=== PATIENT | female | born 1965 | race Caucasian/White ===

== ENCOUNTER 2019-05-07 16:58 | Emergency (ER) | payer BC, OTHER ==
[2019-05-07 17:49] VITALS: BP 133/79; PULSE 70; RESP 18; TEMP 98.3
--- NOTE | 2019-05-07 18:54 | CT ---
EXAMINATION TYPE: CT brain avi [facility] DATE OF EXAM: 05/07/2019 COMPARISON: None HISTORY: Fall of horse, head and neck pain. CT DLP: 1127 mGycm Automated exposure control for dose reduction was used. TECHNIQUE: CT scan of the head and cervical spine are performed without contrast. FINDINGS: Ventricles of normal size. There is no mass effect nor midline shift. There is no sign of intracranial hemorrhage. Calvarium is intact. There is some straightening of the cervical spine. There is spurring anteriorly from C3 to C7. Facet joints are intact. Skull base is intact. There is no evidence of a fracture. There is narrowing of the C4-5 C5-6 disc spaces. There is posterior endplate spur formation but proba eliud no significant spinal stenosis. There is posterior central C4-5 disc herniation. IMPRESSION: Negative CT scan of the brain. Multilevel spondylotic changes with slight kyphotic curvature. No fracture.
--- NOTE | 2019-05-07 19:14 | ED ---
Head Injury HPI - General Chief complaint: Head Injury Stated complaint: head injury Time Seen by Provider: 05/07/19 18:04 Source: patient Mode of arrival: ambulatory Limitations: no limitations - History of Present Illness Initial comments: Patient is a 54-year-old female presenting to the emergency Department with complaints of a head injury after falling off a horse yesterday. Patient states she was in a slow trauma with her horse when the horse tripped and they both fell forward and off to the side. Patient states she was wearing a helmet at t he time and did hit the back of her head on the ground. Patient states she was feeling okay yesterday. Patient states she did go to bed relatively early last night which is unusual for her. Patient states this morning she still felt fatigued, she's been nauseous all day, and having a hard time concentrating at work. Patient has no other complaints at this time. Upon arrival to ER vital signs are stable, afebrile. work. Patient did go to urgent care who recommended she come in to the ER for further evaluation. Patient denies any fever, chills, vomiting, diarrhea at this time. - Related Data Allergies/Adverse reactions: Allergies Allergy/AdvReac Type Severity Reaction Status Date / Time No Known Allergies Allergy Verified 05/07/19 17:49 Review of Systems ROS Statement: Those systems with pertinent positive or pertinent negative responses have been documented in the HPI. ROS Other: All systems not noted in ROS Statement are negative. Past Medical History Past Medical History: No Reported History History of Any Multi-Drug Resistant Organisms: None Reported Past Surgical History: No Surgical Hx Reported Past Psychological History: No Psychological Hx Reported Smoking Status: Current some day smoker Past Alcohol Use History: Occasional Past Drug Use History: None Reported General Exam - General Exam Comments Initial Comments: GENERAL: Well-appearing, well-nourished and in no acute distress. HEAD: Atraumatic, normocephalic. EYES: Pupils equal round and reactive to light, extraocular movements intact, sclera anicteric, conjunctiva are normal. ENT: TMs normal, nares patent, oropharynx clear without exudates. Moist mucous membranes. NECK: Normal range of motion, supple without lymphadenopathy or JVD. LUNGS: Breath sounds clear to auscultation bilaterally and equal. No wheezes rales or rhonchi. HEART: Regular rate and rhythm without murmurs, rubs or gallops. ABDOMEN: Soft, nontender, normoactive bowel sounds. No guarding, no rebound. No masses appreciated. : Deferred EXTREMITIES: Normal range of motion, no pitting or edema. No clubbing or cyanosis. NEUROLOGICAL: Cranial nerves II through XII grossly intact. Normal speech, normal gait. PSYCH: Normal mood, normal affect. SKIN: Warm, Dry, normal turgor, no rashes or lesions noted. Limitations: no limitations Course Vital Signs 05/07/19 17:46 Temperature 98.3 F Pulse Rate 70 Respiratory 18 Rate Blood Pressure 133/79 O2 Sat by Pulse 100 Oximetry Medical Decision Making - Medical Decision Making Patient is a 54-year-old female presenting with possible contact concussion-like symptoms after falling off her horse yesterday. Patient was sent by urgent care for further testing. Patient states she was wearing home at yesterday when it happened. Patient states she has been nauseous and having a hard time concentrating today. Patient's exam is unremarkable. Vital signs are stable. CT of the head and c-spine was obtained and shows no acute intracranial bleeding or acute fractures. It is discussed with patient is her symptoms are most li alisha related to a concussion. Patient is stable for discharge at this time. Return parameters were discussed with the patient she verbalized understanding. Case discussed with Dr. Tyler. Disposition Clinical Impression: Concussion without loss of consciousness, Nausea, Neck muscle strain Disposition: HOME SELF-CARE Condition: Stable Instructions (If sedation given, give patient instructions): Concussion (ED) Additional Instructions: Please return to the Emergency Department if symptoms worsen or any other concerns. Is patient prescribed a controlled substance at d/c from ED?: No Referrals: Luis Felipe Frankel DO [Primary Care Provider] - 1-2 days
== END 2019-05-07 19:22 | disposition home or self-care (01) ==
LOC: EC 16:58
DX: S06.0X0A Concussion without loss of consciousness, initial encounter (principal); S16.1XXA Strain of muscle, fascia and tendon at neck level, initial encounter; R11.0 Nausea; F17.200 Nicotine dependence, unspecified, uncomplicated; V80.010A Animal-rider injured by fall from or being thrown from horse in noncollision accident, initial encounter; Y93.52 Activity, horseback riding
CPT/HCPCS: 70450; 72125; 99283

== ENCOUNTER 2019-08-31 08:07 | Day surgery (SDC) | payer OTHER ==
[2019-08-29 11:17] VITALS: BMI 19.7
[~2019-08-31 08:07] MED LIST: LACTATED RINGERS 1,000 ML IV SCH; LIDOCAINE 1% 20 ML VIAL (10MG/ML) FOR IV START INTRADERMA PRN
[2019-08-31 08:32] VITALS: TEMP 98.1
[2019-08-31] MEDS ORDERED: MIDAZOLAM 2 MG/2 ML VIAL ONE (09:08)
[2019-08-31] MEDS ORDERED: PROPOFOL 10 MG/ML 20 ML VIAL IV ONE (09:08)
[2019-08-31] MEDS ORDERED: fentaNYL (PF) 50 MCG/ML 2 ML AMP ONE (09:08)
--- NOTE | 2019-08-31 09:28 | P.PCN ---
Date of Procedure: 08/31/19 Procedure(s) Performed: BRIEF HISTORY: Patient is a 54-year-old pleasant male scheduled for an elective colonoscopy as a part of screening for colorectal neoplasia. PROCEDURE PERFORMED: Colonoscopy with biopsy. PREOPERATIVE DIAGNOSIS: Screening for colon cancer. IV sedation per Anesthesia. PROCEDURE: After informed consent was obtained, the patient, was brought into the endoscopy unit. IV sedation was administered by Anesthesia under continuous monitoring. Digital rectal examination was normal. Initially the Olympus CF-160 flexible video colonoscope was then inserted in the rectum, gradually advanced into the cecum without any difficulty. Careful examination was performed as the scope was gradually being withdrawn. Ileocecal valve and the appendiceal orifice were visualized and appeared normal. Prep was excellent. Mucosa of the cecum appeared normal. In the ascending colon there was a 3-4 mm polyp that was removed by cold biopsy. Rest of the, ascending colon, transverse colon, descending colon, sigmoid colon, and rectum appeared normal. Retroflexion was performed in the rectum and no lesions were seen. The patient tolerated the procedure well. IMPRESSION: 3-4 mm ascending colon polyp status post removal by cold biopsy Rest of the colon appeared normal RECOMMENDATIONS: Findings of this examination were discussed with the patient as well as her family. She was advised to follow with the biopsy results. If the biopsies revealed and adenoma he can have a repeat colonoscopy in 5 years.
[2019-08-31 09:31] VITALS: RESP 16
[2019-08-31 09:40] VITALS: BP 95/60; PULSE 56
== END 2019-08-31 10:24 | disposition home or self-care (01) ==
LOC: ORWHC2ENDO 08:07
PROVIDERS: ATTEND Internal Medicine Gastroenterology
DX: Z12.11 Encounter for screening for malignant neoplasm of colon (principal); K63.5 Polyp of colon; F17.200 Nicotine dependence, unspecified, uncomplicated; Z98.890 Other specified postprocedural states; Z97.2 Presence of dental prosthetic device (complete) (partial)
CPT/HCPCS: 88305; 45380; J2250; J3010; J2704

== ENCOUNTER → 2023-07-01 | Outpatient (CLI) | payer OTHER ==
--- NOTE | 2023-07-01 10:57 | US ---
EXAMINATION TYPE: US abdomen complete DATE OF EXAM: 07/01/2023 COMPARISON: NONE CLINICAL INDICATION: Female, 58 years old with history of R10.11 RIGHT UPPER QUADRANT PAIN; TECHNIQUE: Multiple sonographic images of the abdomen are obtained. FINDINGS: EXAM MEASUREMENTS: Liver Length: 13.1 cm Gallbladder Wall: 0.21 cm CBD: 0.31 cm Spleen: 8.8 x 2.7 cm Right Kidney: 8.2 x 3.1 x 3.2 cm Left Kidney: 11.0 x 5.0 x 4.5 cm BELLSTAFF NOTES: Pancreas: Tail obscured by overlying bowel gas Liver: Somewhat heterogeneous in appearance Gallbladder: Appears wnl Evidence for sonographic Luna's sign: no CBD: wnl Spleen: wnl Right Kidney: wnl Left Kidney: wnl Upper IVC: wnl Abd Aorta: Mild plaque formation The liver is heterogenous. The intrahepatic portion of the IVC and proximal abdominal aorta are withi n normal limits. There is no evidence of cholelithiasis. Common bile duct is unremarkable. The vis ualized portions of the pancreas are homogenous. The spleen is unremarkable. Kidneys are symmetric and free of hydronephrosis. No renal lesions are seen. IMPRESSION: 1. Hepatic steatosis.
== END | disposition home or self-care (01) ==
LOC: RADUSWWP 09:29
PROVIDERS: ATTEND Family Medicine
DX: K76.0 Fatty (change of) liver, not elsewhere classified (principal); R10.11 Right upper quadrant pain
CPT/HCPCS: 76700

== ENCOUNTER 2023-07-07 18:40 | Emergency (ER) | payer OTHER ==
[2023-07-07 18:53] VITALS: TEMP 98
--- NOTE | 2023-07-07 19:16 | ED ---
Abdominal Pain HPI - General Source: patient, RN notes reviewed Mode of arrival: ambulatory Limitations: no limitations - History of Present Illness MD Complaint: abdominal pain Onset/Timin -: week(s) <Mikala Villalobos - Last Filed: 07/07/23 19:14> - General Source: patient, RN notes reviewed, old records reviewed <Luc Bender - Last Filed: 07/07/23 22:43> <Ericka Burgess - Last Filed: 07/11/23 07:57> - General Chief Complaint: Abdominal Pain Stated Complaint: abd pain Time Seen by Provider: 07/07/23 19:14 - History of Present Illness Initial Comments: This is a 58 year old female who presents to the emergency department for abdominal pain. She reports increasing RUQ abdominal pain over the last 5 weeks. She saw her PCP 6 days ago and had an US of her gallbladder revealing no problems related to that. (Mikala Villalobos) Patient is a 58-year-old female who presents emergency Department complaining of acute on chronic right upper quadrant abdominal pain. His been more persistent. Radiates to her back. Has further workup in the past and is due to receive further testing in a few weeks but may not be able to wait until then. He denies chest pain or shortness of breath. Denies fevers. Endorses chronic diarrhea that is nonbloody over this period of time. Endorses intermittent nausea but no emesis. Has no other acute complaints at this time. No history of abdominal surgeries. Still has her gallbladder. Presents for further evaluation. Was told previously she has a fatty liver. Patient originally eval uated as a quick note. I evaluated patient when she is placed in a room. (Luc Bender) - Related Data Previous Rx's Medication Instructions Recorded Ketorolac [Toradol] 10 mg PO Q8HR #15 tab 07/08/23 Allergies Allergy/AdvReac Type Severity Reaction Status Date / Time No Known Allergies Allergy Verified 07/07/23 18:52 Review of Systems ROS Other: All systems not noted in ROS Statement are negative. <Mikala Villalobos - Last Filed: 07/07/23 19:14> ROS Other: All systems not noted in ROS Statement are negative. <Luc Bender - Last Filed: 07/07/23 22:43> ROS Other: All systems not noted in ROS Statement are negative. <Ericka Burgess - Last Filed: 07/11/23 07:57> ROS Statement: Those systems with pertinent positive or pertinent negative responses have been documented in the HPI. Review of Systems: CONST: Denies fever EYES: Denies blurry vision ENT: Denies nasal congestion C/V: Denies Chest pain RESP: Denies shortness of breath GI: Endorses abdominal pain : Denies dysuria SKIN: Denies rash. MSK: Denies joint pain. NEURO: Denies headache (Luc Bender) Past Medical History Past Medical History: No Reported History History of Any Multi-Drug Resistant Organisms: None Reported Past Surgical History: No Surgical Hx Reported Additional Past Surgical History / Comment(s): D & C, ORAL SX UNDER ANESTHESIA Past Anesthesia/Blood Transfusion Reactions: No Reported Reaction Past Psychological History: No Psychological Hx Reported Smoking Status: Current some day smoker Past Alcohol Use History: Occasional Past Drug Use History: None Reported - Past Family History Father Family Medical History: Cancer <Mikala Villalobos - Last Filed: 07/07/23 19:14> General Exam Limitations: no limitations <Mikala Villalobos - Last Filed: 07/07/23 19:14> <Luc Bender - Last Filed: 07/07/23 22:43> - General Exam Comments Initial Comments: Visual Physical Exam Vital signs reviewed General: Well-appearing, nontoxic, no acute distress. Head: Normocephalic, atraumatic Eyes: PERRLA, EOMI ENT: Airway patent Chest: Nonlabored breathing Skin: No visual rash, normal skin tone Neuro: Alert and oriented 3 Musculoskeletal: No gross abnormalities I performed the QuickNote portion of this chart. Signed Mikala Villalobos PA-C. (Mikala Villalobos) General: Appears in no acute distress. HEAD: Normal with no signs of head trauma. EYES: PERRLA, EOMI, conjunctiva normal, no discharge. ENT: Hearing grossly intact, normal oropharynx. RESPIRATORY: Clear breath sounds bilaterally. No wheezes, rales, or rhonchi. C/V: Regular rate and rhythm. S1 and S2 auscultated, no edema, peripheral pulses 2+ and intact throughout ABD: Abdomen is soft, nondistended. Tender to palpation in the right upper quadrant. No guarding. No rebound tenderness. No CVA tenderness to percussion. EXT: Normal range of motion, no obvious deformity SKIN: No rashes or lesions observed on exposed skin. NEURO: Alert and oriented 4. (Luc Bender) Course Vital Signs 07/07/23 07/08/23 07/08/23 18:50 00:04 02:48 Temperature 98 F Pulse Rate 83 69 66 Respiratory 16 18 18 Rate Blood Pressure 137/83 119/59 131/74 O2 Sat by Pulse 99 98 100 Oximetry Medical Decision Making - Lab Data Result diagrams: 07/07/23 20:54 07/07/23 20:54 - EKG Data -: EKG Interpreted by Me <Luc Bender - Last Filed: 07/07/23 22:43> - Lab Data Result diagrams: 07/07/23 20:54 07/07/23 20:54 <Ericka Burgess - Last Filed: 07/11/23 07:57> - Medical Decision Making Was pt. sent in by a medical professional or institution (Dr. PA, H[employer]ORER, urgent care, hospital, or intermediate...) When possible be specific @ -No Did you speak to anyone other than the patient for history (EMS, parent, family, police, friend...)? What history was obtained from this source @ -No Did you review nursing and triage notes (agree or disagree)? Why? @ -I reviewed and agree with nursing and triage notes Were old charts reviewed (outside hosp., previous admission, EMS record, old EKG, old radiological studies, urgent care reports/EKG's, intermediate records)? Report findings @ -Old charts reviewed Differential Diagnosis (chest pain, altered mental status, abdominal pain women, abdominal pain men, vaginal bleeding, weakness, fever, dyspnea, syncope, headache, dizziness, GI bleed, back pain, seizure, CVA, palpatations, mental health, musculoskeletal)? @ -Differential Abdominal Pain Women: Appendicitis, Cholecystitis, diverticulosis, ischemic bowel, pancreatitis, hepatitis, UTI, gastroenteritis, AAA, incarcerated hernia, bowel obstruction, constipation, inflammatory bowel, hepatitis, peptic ulcer disease, splenic infarction, perforated viscus, vulvitis, ovarian torsion, PID, kidney stone, placenta abruption, this is not meant to be an all-inclusive list EKG interpreted by me (3pts min.). @ -As above X-rays interpreted by me (1pt min.). @ -Chest x-ray reveals no evidence of pneumoperitoneum or air under the diaphragm. CT interpreted by me (1pt min.). @ -None done U/S interpreted by me (1pt. min.). @ -Pending What testing was considered but not performed or refused? (CT, X-rays, U/S, labs)? Why? @ -None What meds were considered but not given or refused? Why? @ -None Did you discuss the management of the patient with other professionals (professionals i.e. Dr., PA, H[employer] D[employer]ITY [employer] LABORER, lab, RT, psych nurse, protective services social worker, computer methods analyst, teacher, booking officer, case management social worker)? Give summary @ -No Was smoking cessation discussed for >3mins.? @ -No Was critical care preformed (if so, how long)? @ -No Were there social determinants of health that impacted care today? How? (Homelessness, low income, unemployed, alcoholism, drug addiction, transportation, low edu. Level, literacy, decrease access to med. care, prison, rehab)? @ -No Was there de-escalation of care discussed even if they declined (Discuss DNR or withdrawal of care, Hospice)? DNR status @ -No What co-morbidities impacted this encounter? (DM, HTN, Smoking, COPD, CAD, Cancer, CVA, ARF, Chemo, Hep., AIDS, mental health diagnosis, sleep apnea, morbid obesity)? @ -None Was patient admitted / discharged? Hospital course, mention meds given and route, prescriptions, significant lab abnormalities, going to OR and other pertinent info. @ -Based on the patient's presentation and physical exam, I'm concerned for acute on chronic abdominal pain. Workup was discharged in triage. We'll obtain abdominal laboratory studies, chest x-ray, screening EKG, ultrasound of gallbladder. She'll be symptomatically treated with IV fluids, Toradol, Protonix, Maalox. She was in agreement this plan. Vital signs are within acceptable limits. Labs are within acceptable limits. Chest x-ray unremarkable. EKG within acc eptable limits. Ultrasound is still pending at this time. This time, patient was signed out to Dr. Burgess pending results of ultrasound. Undiagnosed new problem with uncertain prognosis? @ -No Drug Therapy requiring intensive monitoring for toxicity (Heparin, Nitro, Insulin, Cardizem)? @ -No Were any procedures done? @ -No (Luc Bender) Was patient admitted / discharged? Hospital course, mention meds given and route, prescriptions, significant lab abnormalities, going to OR and other pertinent info. @ -Patient was signed out to me pending ultrasound read. Ultrasound is returned and demonstrates no acute findings. Results are discussed patient. There is concern for biliary dyskinesia. At this time the patient will be discharged home and needs to follow up with her primary care doctor. Recommend that they schedule a HIDA scan. Instructed to eat a bland diet and take pain medications as directed. Return for any new or worsening symptoms. Patient was agreeable to this plan and she is discharged in stable condition Undiagnosed new problem with uncertain prognosis? @ -Yes Drug Therapy requiring intensive monitoring for toxicity (Heparin, Nitro, Insulin, Cardizem)? @ -No Were any procedures done? @ -No Diagnosis/symptom? @ -Acute right upper quadrant abdominal pain Acute, or Chronic, or Acute on Chronic? @ -Acute Uncomplicated (without systemic symptoms) or Complicated (systemic symptoms)? @ -Complicated Side effects of treatment? @ -No Exacerbation, Progression, or Severe Exacerbation? @ -No Poses a threat to life or bodily function? How? (Chest pain, USA, VT, pneumonia, PE, COPD, DKA, ARF, appy, cholecystitis, CVA, Diverticulitis, Homicidal, Suicidal, threat to staff... and all critical care pts) @ -No (Ericka Burgess) - Lab Data Lab Results 07/07/23 07/07/23 07/07/23 Range/Units 19:00 20:54 20:54 WBC 10.5 (3.8-10.6) k/uL RBC 4.28 (3.80-5.40) m/uL Hgb 13.8 (11.4-16.0) gm/dL Hct 40.7 (34.0-46.0) % MCV 95.1 (80.0-100.0) fL MCH 32.3 (25.0-35.0) pg MCHC 34.0 (31.0-37.0) g/dL RDW 11.2 L (11.5-15.5) % Plt Count 329 (150-450) k/uL MPV 6.6 Neutrophils % 59 % Lymphocytes % 33 % Monocytes % 5 % Eosinophils % 2 % Basophils % 0 % Neutrophils # 6.2 (1.3-7.7) k/uL Lymphocytes # 3.4 (1.0-4.8) k/uL Monocytes # 0.5 (0-1.0) k/uL Eosinophils # 0.2 (0-0.7) k/uL Basophils # 0.0 (0-0.2) k/uL Sodium 136 L (137-145) mmol/L Potassium 4.4 (3.5-5.1) mmol/L Chloride 102 (98-107) mmol/L Carbon Dioxide 25 (22-30) mmol/L Anion Gap 9 mmol/L BUN 20 H (7-17) mg/dL Creatinine 0.57 (0.52-1.04) mg/dL Est GFR (CKD-EPI)AfAm >90 (>60 ml/min/1.73 sqM) Est GFR (CKD-EPI)NonAf >90 (>60 ml/min/1.73 sqM) Glucose 93 (74-99) mg/dL Plasma Lactic Acid Andrew (0.7-2.0) mmol/L Calcium 9.8 (8.4-10.2) mg/dL Total Bilirubin 0.4 (0.2-1.3) mg/dL AST 24 (14-36) U/L ALT 19 (4-34) U/L Alkaline Phosphatase 56 (38-126) U/L Total Protein 7.3 (6.3-8.2) g/dL Albumin 4.5 (3.5-5.0) g/dL Amylase (30-110) U/L Lipase (23-300) U/L Urine Color Colorless Urine Appearance Clear (Clear) Urine pH 5.0 (5.0-8.0) Ur Specific Bryson 1.008 (1.001-1.035) Urine Protein Negative (Negative) Urine Glucose (UA) Negative (Negative) Urine Ketones Negative (Negative) Urine Blood Negative (Negative) Urine Nitrite Negative (Negative) Urine Bilirubin Negative (Negative) Urine Urobilinogen <2.0 (<2.0) mg/dL Ur Leukocyte Esterase Negative (Negative) 07/07/23 07/07/23 Range/Units 20:54 21:03 WBC (3.8-10.6) k/uL RBC (3.80-5.40) m/uL Hgb (11.4-16.0) gm/dL Hct (34.0-46.0) % MCV (80.0-100.0) fL MCH (25.0-35.0) pg MCHC (31.0-37.0) g/dL RDW (11.5-15.5) % Plt Count (150-450) k/uL MPV Neutrophils % % Lymphocytes % % Monocytes % % Eosinophils % % Basophils % % Neutrophils # (1.3-7.7) k/uL Lymphocytes # (1.0-4.8) k/uL Monocytes # (0-1.0) k/uL Eosinophils # (0-0.7) k/uL Basophils # (0-0.2) k/uL Sodium (137-145) mmol/L Potassium (3.5-5.1) mmol/L Chloride (98-107) mmol/L Carbon Dioxide (22-30) mmol/L Anion Gap mmol/L BUN (7-17) mg/dL Creatinine (0.52-1.04) mg/dL Est GFR (CKD-EPI)AfAm (>60 ml/min/1.73 sqM) Est GFR (CKD-EPI)NonAf (>60 ml/min/1.73 sqM) Glucose (74-99) mg/dL Plasma Lactic Acid Andrew 0.7 (0.7-2.0) mmol/L Calcium (8.4-10.2) mg/dL Total Bilirubin (0.2-1.3) mg/dL AST (14-36) U/L ALT (4-34) U/L Alkaline Phosphatase (38-126) U/L Total Protein (6.3-8.2) g/dL Albumin (3.5-5.0) g/dL Amylase 90 (30-110) U/L Lipase 198 (23-300) U/L Urine Color Urine Appearance (Clear) Urine pH (5.0-8.0) Ur Specific Bryson (1.001-1.035) Urine Protein (Negative) Urine Glucose (UA) (Negative) Urine Ketones (Negative) Urine Blood (Negative) Urine Nitrite (Negative) Urine Bilirubin (Negative) Urine Urobilinogen (<2.0) mg/dL Ur Leukocyte Esterase (Negative) - EKG Data EKG Comments: 12-lead Electrocardiogram Interpretation Note EKG was reviewed and interpreted by myself. 12-lead ECG performed at 2150 is interpreted by me as revealing normal sinus rhythm at a rate of 67 beats per minute. Irving is normal. MS intervals 142 ms, QRS duration is 83 ms, QTc is 419 ms.. There were no ST or T wave abnormalities to suggest myocardial ischemia or injury. R wave progression across the precordium was satisfactory. By my interpretation this EKG is non-diagnostic for acute ischemia. (Luc Bender) Disposition <Mikala Villalobos - Last Filed: 07/07/23 19:14> <Luc Bender - Last Filed: 07/07/23 22:43> Is patient prescribed a controlled substance at d/c from ED?: No Time of Disposition: 02:36 <Ericka Burgess - Last Filed: 07/11/23 07:57> Clinical Impression: RUQ abdominal pain Disposition: HOME SELF-CARE Condition: Stable Instructions (If sedation given, give patient instructions): Abdominal Pain (ED) Additional Instructions: Please call your primary care doctor to see if they will schedule a HIDA scan for you. Eat a bland diet. Take the pain medications as needed. Follow up with your doctor. Return for any new or worsening symptoms Prescriptions: Ketorolac [Toradol] 10 mg PO Q8HR #15 tab Referrals: Norberto Colon DO [Primary Care Provider] - 1-2 days Merlin Muñoz MD [Medical Doctor] - 1-2 days
[2023-07-07 19:33] LABS: Appearance,Urine Clear (Clear); Bilirubin,Urine Negative (Negative); Blood,Urine Negative (Negative); Color,Urine Colorless; Glucose,Urine (UA) Negative (Negative); Ketones,Urine Negative (Negative); Leukocyte Esterase,Urine Negative (Negative); Nitrite,Urine Negative (Negative); Protein,Urine Negative (Negative); Specific Gravity,Urine 1.008 (1.001-1.035); Urobilinogen,Urine <2.0 mg/dL (<2.0)
[2023-07-07 21:25] LABS: Basophils % (A) 0 %; Eosinophils # (A) 0.2 k/uL (0-0.7); Eosinophils % (A) 2 %; HCT 40.7 % (34.0-46.0); HGB 13.8 gm/dL (11.4-16.0); Lymphocytes # (A) 3.4 k/uL (1.0-4.8); Lymphocytes % (A) 33 %; MCH 32.3 pg (25.0-35.0); MCV 95.1 fL (80.0-100.0); Mean Platelet Volume 6.6; Monocytes # (A) 0.5 k/uL (0-1.0); Monocytes % (A) 5 %; Neutrophils # (A) 6.2 k/uL (1.3-7.7); Neutrophils % (A) 59 %; Platelet Count 329 k/uL (150-450); RBC 4.28 m/uL (3.80-5.40); RDW 11.2 % (11.5-15.5); WBC 10.5 k/uL (3.8-10.6)
[2023-07-07] MEDS ORDERED: MAG HYDROX/AL HYDROX/SIMETH 30 ML, HYOSCYAMINE ELIXIR 10 ML, LIDOCAINE 2% GLYDO JELLY 1... PO STA ×3 (21:25)
[2023-07-07] MEDS ORDERED: PANTOPRAZOLE 40 MG/10 ML VIAL IVP STA (21:25)
[2023-07-07] MEDS ORDERED: SODIUM CHLORIDE 0.9% 1,000 ML IV STA (21:25)
[2023-07-07] MEDS ORDERED: KETOROLAC 15 MG/ML 1 ML VIAL IVP STA (21:25)
[2023-07-07 21:42] LABS: Amylase 90 U/L (30-110); Lipase 198 U/L (23-300)
[2023-07-07 21:42] LABS: ALT 19 U/L (4-34); AST 24 U/L (14-36); African American GFR (CKD) >90 (>60 ml/min/1.73 sqM); Albumin 4.5 g/dL (3.5-5.0); Alkaline Phosphatase 56 U/L (38-126); Anion Gap 9 mmol/L; Blood Urea Nitrogen 20 mg/dL (7-17); Calcium 9.8 mg/dL (8.4-10.2); Carbon Dioxide 25 mmol/L (22-30); Chloride 102 mmol/L (98-107); Glucose 93 mg/dL (74-99); Non-African American GFR(CKD) >90 (>60 ml/min/1.73 sqM); Potassium 4.4 mmol/L (3.5-5.1); Sodium 136 mmol/L (137-145); Total Bilirubin 0.4 mg/dL (0.2-1.3); Total Protein 7.3 g/dL (6.3-8.2)
--- NOTE | 2023-07-07 22:08 | XR ---
EXAMINATION: XR chest 1V portable DATE AND TIME: 07/07/2023 9:44 PM CLINICAL INDICATION: PHH; eval for free air under diaphragm TECHNIQUE: PA view COMPARISON: None FINDINGS: The lungs are clear. The pleural spaces are negative. The cardiac silhouette is not enlarged. The remainder of the mediastinal silhouette is unremarkable. The skeletal structures and soft tissues are negative for acute findings. There is no evidence of pne umoperitoneum. IMPRESSION: No acute radiographic process.
--- NOTE | 2023-07-08 00:05 | US ---
EXAM: US Abdomen Limited, Gallbladder CLINICAL HISTORY: ITS.REASON US Reason: ruq pain TECHNIQUE: Real-time ultrasound of the right upper quadrant with image documentation. COMPARISON: 07/01/2023 FINDINGS: Liver: Liver is unremarkable. Gallbladder is within normal limits with a gallbladder wall measuring 2.3 mm. Gallbladder: No sonographic Luna sign. Common bile duct: Common bile duct is within normal limits measuring 2. 4 mm. No stones. No dilation. Pancreas: Unremarkable as visualized. Right kidney: Right kidney measures 8.5 cm in length. IMPRESSION: No acute findings in the right upper quadrant.
[2023-07-08 00:09] VITALS: RESP 18
[2023-07-08 03:02] VITALS: BP 131/74; PULSE 66
== END 2023-07-08 02:56 | disposition home or self-care (01) ==
LOC: EC 18:40
DX: R10.11 Right upper quadrant pain (principal); F17.200 Nicotine dependence, unspecified, uncomplicated
CPT/HCPCS: 36415; 93005; 80053; 82150; 83605; 83690; 85025; 81003; 71045; 76705; 99285; 96374; 96375; 96361; J1885; C9113

== ENCOUNTER → 2023-07-15 | Outpatient (CLI) | payer OTHER ==
--- NOTE | 2023-07-15 09:48 | NM ---
EXAMINATION TYPE: NM hepatobiliary w EF DATE OF EXAM: 07/15/2023 COMPARISON: Gallbladder ultrasound 07/07/2023 CLINICAL INDICATION: Female, 58 years old with history of K76.0 FATTY (CHANGE OF) LIVER,; TECHNIQUE: After the intravenous administration of 4.6 mCi Tc 99m Mebrofenin hepatobiliary scintigrap hy is performed. Immediate images post injection. FINDINGS: There is satisfactory initial accumulation of tracer by the liver. The gallbladder is visualized wit hin 6 minutes. The small bowel activity is noted within 6 minutes. At one hour 8 ounces of oral ens ure plus is given to mimic CCK and gallbladder ejection fraction is calculated at 88 %, in the normal range. Therefore there is no scintigraphic evidence of cystic or common bile duct obstruction to carnes ggest acute cholecystitis or gallbladder dyskinesia. IMPRESSION: Exam is within normal limits.
== END | disposition home or self-care (01) ==
LOC: RADNMMAIN 06:49
PROVIDERS: ATTEND Family Medicine
DX: K76.0 Fatty (change of) liver, not elsewhere classified (principal)
CPT/HCPCS: 78226; A9537

== ENCOUNTER → 2023-08-08 | Outpatient (CLI) | payer OTHER ==
--- NOTE | 2023-08-08 18:49 | CT ---
EXAMINATION TYPE: CT abdomen pelvis w con CT DLP: 355.8 mGycm, Automated exposure control for dose reduction was used. 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 TECHNIQUE: Axial CT of the ;CT abdomen pelvis w con;Sagittal and coronal reformats were created on a separate workstation. Contrast used:100 cc mL of Isovue 300 with IV Contrast, (none if empty) Oral contrast used: with Oral Contrast (none if empty) FINDINGS: LOWER CHEST: Unremarkable ABDOMEN LIVER: Unremarkable GALLBLADDER AND BILE DUCTS: Unremarkable. PANCREAS: Unremarkable. SPLEEN: Unremarkable. ADRENAL GLANDS: Unremarkable. KIDNEYS AND URETERS: No evidence of hydronephrosis or renal calculus. The ureters are unremarkable. PELVIS BLADDER: Unremarkable REPRODUCTIVE: Unremarkable. ABDOMEN & PELVIS STOMACH AND BOWEL: No evidence of bowel obstruction. PERITONEUM/RETROPERITONEUM: No evidence of pneumoperitoneum or free fluid. VASCULATURE: No evidence of aortic aneurysm. MUSCULOSKELETAL: No acute osseous abnormalities LYMPH NODES: No gross evidence for lymphadenopathy. SOFT TISSUE/ABDOMINAL WALL: Unremarkable IMPRESSION: No evidence for acute abdominal process to explain the patient's pain.
== END | disposition home or self-care (01) ==
LOC: RADCTMAIN 16:28
PROVIDERS: ATTEND Family Medicine
DX: K57.80 Diverticulitis of intestine, part unspecified, with perforation and abscess without bleeding (principal); N23 Unspecified renal colic
CPT/HCPCS: 74177; Q9967

== ENCOUNTER → 2024-01-31 | Outpatient (CLI) | payer OTHER ==
[2024-01-31 22:33] LABS: T4, Free (Free Thyroxine) 1.57 ng/dL (0.80-1.80)
== END | disposition home or self-care (01) ==
LOC: LABWHC1 10:25
PROVIDERS: ATTEND Otolaryngology
DX: E06.9 Thyroiditis, unspecified (principal); R53.83 Other fatigue
CPT/HCPCS: 36415; 84439; 84443; 86376

== ENCOUNTER 2024-03-01 07:21 | Day surgery (SDC) | payer OTHER ==
[2024-02-27 17:00] VITALS: BMI 18.7
[2024-03-01] MEDS ORDERED: HYDROmorphone 0.5 MG/0.5 ML SYRINGE IVP PRN (07:24)
[2024-03-01 08:02] VITALS: TEMP 97
[2024-03-01 08:08] LABS: Glucose,Whole Blood 84 mg/dL (70-110)
[2024-03-01] MEDS: LACTATED RINGERS 1,000 ML IV SCH (08:11)
[2024-03-01] MEDS: FAMOTIDINE 20 MG/2 ML VIAL IV PRN (08:12)
[2024-03-01] MEDS: DEXAMETHASONE SOD PHOSPHATE 4 MG/ML 1 ML VIAL IV ONE (08:13)
[2024-03-01] MEDS: ONDANSETRON 4 MG/2 ML VIAL IVP ONE (08:13)
[2024-03-01] MEDS: IV FLUID CONTINUATION 1,000 ML IV ONE (08:17)
[2024-03-01] MEDS ORDERED: NALOXONE 0.4 MG/ML 1 ML VIAL ONE (08:32)
[2024-03-01] MEDS ORDERED: MIDAZOLAM 2 MG/2 ML VIAL ONE (08:32)
[2024-03-01] MEDS ORDERED: PROPOFOL 10 MG/ML 20 ML VIAL IV ONE (08:32)
[2024-03-01] MEDS ORDERED: fentaNYL (PF) 50 MCG/ML 2 ML AMP ONE (08:32)
[2024-03-01] MEDS: OFLOXACIN 0.3% OPHTH DROPS 5 ML BOTTLE BOTH EARS ONE (08:34)
--- NOTE | 2024-03-01 09:25 | P.OP ---
Date of Procedure: 03/01/24 Preoperative Diagnosis: Chronic serous otitis media with effusion bilateral, nasopharyngeal cyst Postoperative Diagnosis: Same Procedure(s) Performed: Bilateral direct microscopic tympanostomy and tube placement utilizing ultrasil tube, endoscopic removal of nasopharyngeal cystic mass Anesthesia: MATTA Surgeon: Everett Reyes Estimated Blood Loss (ml): 0 Pathology: other (Nasopharyngeal mass) Condition: stable Disposition: PACU Indications for Procedure: Patient was found to have persistent bilateral middle ear effusion and persistent eustachian tube obstruction. During the examination we found a cyst in the nasopharynx. After appropriate maximal medical therapy that has failed we have decided to proceed forward with a bilateral direct microscopic tympanostomy and tube placement utilizing a silicone ultrasil tube along with removal of this nasopharyngeal cystic mass. All risks, benefits and alternative therapies were discussed in detail. Consent was obtained and all questions were answered. Operative Findings: Patient had a bilateral middle ear effusion severe retraction atrophic tympanic membranes were noted patient also had a cystic mass in the nasopharynx Description of Procedure: Patient was taken to the operative room and placed in the supine position. A general inhalation anesthetic was administered to the patient by mask and subsequently intubated with a cuffed endotracheal tube by the department of anesthesia with a functioning IV line in place. The patient was monitored throughout the entire case by the department of anesthesia. Both ears were visualized with a 250 mm Zeiss microscope and cerumen and epithelial debris was removed from the external auditory canals bilaterally. Tympanostomy incisions were made bilaterally utilizing ultrasil tubes. Fluid was suctioned tubes were in excellent position. We then with use of endoscopes entered the nose and identified a large cystic mass. This was removed without incident with the use of a Krystal Blakesley. We did use suction electrocoagulation for hemostasis. Excellent results were obtained complete removal of the cystic mass was obtained and the patient tolerated this well. We utilized a 0 degree Orantes isabel scope for the the visualization during this part of the procedure. Patient was taken the postanesthesia recovery in excellent condition.
[2024-03-01 10:23] VITALS: BP 125/57; PULSE 80; RESP 16
== END 2024-03-01 11:16 | disposition home or self-care (01) ==
LOC: OR 07:21
PROVIDERS: ATTEND Otolaryngology
DX: H65.23 Chronic serous otitis media, bilateral (principal); J39.2 Other diseases of pharynx; H68.133 Extrinsic cartilagenous obstruction of Eustachian tube, bilateral; H69.83 Other specified disorders of Eustachian tube, bilateral; H90.3 Sensorineural hearing loss, bilateral; Z88.6 Allergy status to analgesic agent; F17.200 Nicotine dependence, unspecified, uncomplicated
CPT/HCPCS: 69436; 42808; J1100; J2405; J3490; 88305; 88341; 88342